=== PATIENT | female | born 1970 | race Caucasian/White ===

== ENCOUNTER 2025-07-11 00:34 | Day surgery (SDC) | payer BC, SELFPAY ==
[2025-07-07 13:44] VITALS: BMI 31.0
[2025-07-11 08:24] VITALS: BP 116/83; PULSE 78; RESP 15; TEMP 36.9; O2SAT 98; BMI 30.6
[2025-07-11] MEDS: LACTATED RINGERS 1,000 ML 150 ML IV CONT (08:31)
--- NOTE | 2025-07-11 08:48 | WPDANESEPPF ---
Anes - Initial Pre Proc Eval Procedure: Operation Date: 07/11/25 10:00 Proposed Procedures p Screening Colonoscopy - Victoriano Story MD Date/Time: 07/11/25 08:48 Surgeon: Victoriano Story MD Pre Op Diagnosis: Encounter for screening for malignant neoplasm of Patient Data Age: 54 Gender: F Height: 1.63 m Weight: 80.9 kg Last Vital Signs Temp 36.9 C 07/11/25 08:24 Pulse 78 07/11/25 08:24 Resp 15 07/11/25 08:24 BP 116/83 07/11/25 08:24 Pulse Ox 98 07/11/25 08:24 O2 Del Method Room Air 07/11/25 08:24 Allergies Allergy/AdvReac Type Severity Reaction Status Date / Time No Known Allergies Allergy Verified 07/11/25 08:20 Home Medications ?Medication ?Instructions ?Recorded ?Confirmed ?Type amlodipine 5 mg tablet 5 mg PO DAILY 09/11/22 07/11/25 History ergocalciferol (vitamin D2) 1,250 1,250 mcg PO WEEKLY 09/11/22 07/11/25 History mcg (50,000 unit) capsule levothyroxine 100 mcg tablet 100 mcg PO DAILY 09/11/22 07/11/25 History (Synthroid) omeprazole 40 mg capsule,delayed 40 mg PO DAILY 09/11/22 07/11/25 History release multivitamin 1 tablet PO DAILY 06/30/23 07/11/25 History Patient hx anesthesia problems: none Family hx anesthesia problems: none Results Review: All pre-operative results and documents have been reviewed as part of the pre-operative evaluation. [facility] Past Medical History Medical History Screening mammogram, encounter for Vaginal delivery x2 Abnormal Pap smear of cervix 04-07-2018 ascus + hpv / colpo 05/06/2018- benign repeat pap in 1 year at annual -lw/ NO pap needed Hypothyroidism Diabetes Esophagus disorder esophageal narrowing GERD (gastroesophageal reflux disease) Insomnia Sleep apnea Surgical History Surgical History History of endoscopy (~2015) acid reflux/narrowing esophagus History of robot-assisted laparoscopic hysterectomy (11/01/18) RA TLH--menometrorrhagia, dysmenorrhea History of colposcopy with cervical biopsy (05/06/18) benign History of tubal ligation (09/05/11) History of laparoscopy (09/05/11) lscope lysis of adhesions/resection of (L) adnexal mass/(R) inguinal hernia History of 2001 primary c/s--breech presentation History of removal of cyst (~1985) ganglion cyst (R) wrist Family History Family History Father Diabetes mellitus Malignant neoplasm of lung Malignant tumor of esophagus Hypertension Grandparent Malignant neoplasm of bone maternal grandfather Social History Social History Smoking status: Never smoker Second hand tobacco smoke exposure: No Alcohol intake: never Alcohol use details: 4 a month Substance use: never Substance use type: does not use Do You Feel Safe in your Home?: Yes Lack of Transportation: No Lack of Food: Never True Current Housing: I Have Housing Concerned About Future Housing: No Difficulty Paying Gas/Electric Bills: No Difficulty Paying for Meds: No Currently Unemployed: No Education: Trade/Vocational Certificate Difficulty w/ Childcare or Family Care: No Living arrangements: with family Additional living arrangements comments: Occupation/Education: occupation 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 Gender identity (if verbalized by the patient): Female Sexual Orientation (if Verbalized by the Patient): Straight or Heterosexual Spiritual care concerns: No Anes - Eval Final PreProcedure Day of Procedure 07/11/25 08:48 Patient weight: obese Heart: regular rate and rhythm Lungs: clear to auscultation Airway: Mallampati scale class II Neurological: alert and oriented Last oral intake: >/= 8 hours ASA classification: III Emergent: no Anesthetic plan: proceed Anesthesia type and monitoring: general GIVS and standard monitoring Results Review: All pre-operative results and documents have been reviewed as part of the pre-operative evaluation. Informed Consent: The patient's anesthetic plan and its attendant risks and benefits were discussed with the patient/family/POA. Questions were solicited and answers provided to the satisfaction of the patient/family/POA.
--- NOTE | 2025-07-11 09:26 | PM.HPGS ---
History of Present Illness History of Present Illness Consent: Risks, benefits, and alternatives have been discussed and questions answered. Patient agrees to proceed with procedure. Chief complaint: Encounter for screening for malignant neoplasm of Narrative: Cindy Lord is a 54 year old female here for first screening colonoscopy Review of Systems Review of Systems: All systems reviewed & are unremarkable except as noted in HPI and below PMFSH Past Medical History Medical History (Updated 07/11/25 @ 09:26 by Victoriano Story MD) Colon cancer screening Screening mammogram, encounter for Vaginal delivery x2 Abnormal Pap smear of cervix 04-07-2017 ascus + hpv / colpo 05/06/2018- benign repeat pap in 1 year at annual -lw/ NO pap needed Hypothyroidism Diabetes Esophagus disorder esophageal narrowing GERD (gastroesophageal reflux disease) Insomnia Sleep apnea Surgical History Surgical History History of endoscopy (~2015) acid reflux/narrowing esophagus History of robot-assisted laparoscopic hysterectomy (07/09/18) RA TLH--menometrorrhagia, dysmenorrhea History of colposcopy with cervical biopsy (05/06/18) benign History of tubal ligation (09/05/11) History of laparoscopy (09/05/11) lscope lysis of adhesions/resection of (L) adnexal mass/(R) inguinal hernia History of 2001 primary c/s--breech presentation History of removal of cyst (~1985) ganglion cyst (R) wrist Family History Family History Father Diabetes mellitus Malignant neoplasm of lung Malignant tumor of esophagus Hypertension Grandparent Malignant neoplasm of bone maternal grandfather Social History Social History Smoking status: Never smoker Second hand tobacco smoke exposure: No Alcohol intake: never Alcohol use details: 4 a month Substance use: never Substance use type: does not use Do You Feel Safe in your Home?: Yes Lack of Transportation: No Lack of Food: Never True Current Housing: I Have Housing Concerned About Future Housing: No Difficulty Paying Gas/Electric Bills: No Difficulty Paying for Meds: No Currently Unemployed: No Education: Trade/Vocational Certificate Difficulty w/ Childcare or Family Care: No Living arrangements: with family Additional living arrangements comments: Occupation/Education: occupation 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 Gender identity (if verbalized by the patient): Female Sexual Orientation (if Verbalized by the Patient): Straight or Heterosexual Spiritual care concerns: No Meds Home Medications and Allergies Home Medications ?Medication ?Instructions ?Recorded ?Confirmed ?Type amlodipine 5 mg tablet 5 mg PO DAILY 09/11/22 07/11/25 History ergocalciferol (vitamin D2) 1,250 1,250 mcg PO WEEKLY 09/11/22 07/11/25 History mcg (50,000 unit) capsule levothyroxine 100 mcg tablet 100 mcg PO DAILY 09/11/22 07/11/25 History (Synthroid) omeprazole 40 mg capsule,delayed 40 mg PO DAILY 09/11/22 07/11/25 History release multivitamin 1 tablet PO DAILY 06/30/23 07/11/25 History Allergies Allergy/AdvReac Type Severity Reaction Status Date / Time No Known Allergies Allergy Verified 07/11/25 08:20 Vital Signs Vital Signs - 24 hr 07/11/25 08:24 Temperature 98.5 F Pulse Rate 78 Respiratory Rate 15 Blood Pressure 116/83 Pulse Oximetry 98 Oxygen Delivery Room Air Exam Const: General: comfortable and no acute distress HENMT: Face/Nose/Sinus: Normal nares present Eyes: General: appearance normal, both eyes and all related structures Neck: Neck: no JVD Resp: Auscultation: clear to auscultation bilaterally Cardio: Rate: regular rate Rhythm: regular rhythm GI: Inspection: non-distended GI Palp: Yes Soft to palpation Skin: General skin exam: normal color Extrem: General: normal to inspection Psych: Mental Status: mental status grossly normal Assessment and Plan Assessment and plan (1) Colon cancer screening: Code(s): Z12.11 - Encounter for screening for malignant neoplasm of colon Status: Acute Assessment and Plan: colonoscopy
--- NOTE | 2025-07-11 09:44 | S_PTH ---
PATIENT: Cindy Lord LOC: [facility]#:[id number] AGE/SX: 54/F ROOM: RE07/11/[address]: Victoriano Story MD : 1970 BED: DIS: 07/11/2025 SPEC #: [id number] RECD: 07/11/25 10:39 STATUS: LORY REQ #: [id number] DANIEL: 07/11/25 09:[address]: Victoriano Story DEPT: [facility] Surgical RECD BY: Bouchra Franklin ENTERED: 07/11/25 10:39 SP TYPE: Surgical OTHR DR: Kwaku Dangelo, Tissues: A - Colon Polypectomy Procedures: Hematoxylin and Eosin Stain Gross and Microscopic Level 4
[2025-07-11 09:49] VITALS: BP 124/75; PULSE 68; RESP 21; O2SAT 98
[2025-07-11 09:59] VITALS: BP 119/77; PULSE 66; RESP 18; O2SAT 100
[2025-07-11 10:09] VITALS: BP 127/78; PULSE 69; RESP 17; O2SAT 100
== END 2025-07-11 10:24 | disposition home or self-care (01) ==
PROVIDERS: PCP Internal Medicine; Referring Provider Internal Medicine; Visit Provider Internal Medicine Gastroenterology
PROC: 0DJD8ZZ Inspection of Lower Intestinal Tract, Via Natural or Artificial Opening Endoscopic (ICD-10-PCS; CPT 45378; principal; 2025-07-11 10:00)
DX: Z12.11 Encounter for screening for malignant neoplasm of colon (principal); D12.3 Benign neoplasm of transverse colon; K64.8 Other hemorrhoids; E66.9 Obesity, unspecified; Z68.30 Body mass index [BMI] 30.0-30.9, adult
CPT/HCPCS: 45385; 88305; J2003; J2704; J7120